=== PATIENT | male | born 1945 | race Caucasian/White ===

== ENCOUNTER 2016-06-22 00:45 | Inpatient (IN) | payer MEDICARE, MEDICAID ==
[2016-06-22 01:15] VITALS: BP 137/70
[2016-06-22] MEDS ORDERED: Magnesium Hydroxide (MOM) 30 mL UDC PO PRN (01:15)
[2016-06-22] MEDS: Hydrocodone/APAP 5mg/325mg Tab PO PRN ×3 (06:05→18:33)
[2016-06-22] MEDS: Multivitamin Tab PO SCH (09:30)
--- NOTE | 2016-06-22 13:35 | Psychosocial Evaluation ---
IDENTIFYING INFORMATION: The patient is a 71-year-old male. CHIEF COMPLAINT: "I have been in lot of pain." HISTORY OF PRESENT ILLNESS: The patient admitted on a hold for danger to self. He wanted to shoot himself with a gun. When I talked to him, he said he has been in lot of pain and he cannot handle it any more. Apparently, they had been not giving his medication. He was on morphine and oxycodone and they are cutting down his medication that is making him feel very overwhelmed. He is not able to sleep, not able to eat. He has lost 20 pounds in the last 2 years. He reports he felt suicidal, but now he does not feel suicidal. Denies any homicidal ideation, denies any auditory or visual hallucination or paranoia. He looked very much disheveled, internally preoccupied, when I talked to him. PAST PSYCHIATRIC HISTORY: The patient reports he has a history of using heroin IV, thus how he developed hepatitis C. He also used cannabis and also he reports using LSD. Overdose on LSD, took 3 tablets, was hospitalized once. He denies that it was a suicide attempt. He denies any prior treatment for depression; however, I am not sure if he is a reliable historian. MEDICAL HISTORY: Defer to the medical doctor. ALLERGIES: KLONOPIN, PENICILLIN, LYRICA, SOMA, ALPRAZOLAM. MEDICATIONS: The patient is currently on hydrocodone for pain and multivitamin and Ambien as needed. FAMILY AND SOCIAL HISTORY: The patient reported he has been twice, last marriage for 28 years. 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 Has 11th grade education, has a history of using drugs IVs. Initially heroin, have not used it in 40 years. He reports no current psychiatric disorder. is 62 years of age. She is a housewife. He reports he has okay relation with his . He lives with her. He denies having any legal problem. MENTAL STATUS EXAMINATION: The patient is appropriately dressed, not very well groomed, looked very much disheveled, disorganized, internally preoccupied with pain and not sleeping well, not eating well. He knew he was unable to tell me the exact date. He believes this is 2016, but he is not sure if it is June or July. He was able to tell me his date of being 1945. He knows where he is, but he is not exactly sure why he is here. He seems to have average intelligence. He knows the current president of [employer]. His concentration is poor. His insight and judgment is impaired. IMPRESSION: AXIS I: Major depression, recurrent cerebrovascular accident, possible psychosis and also history of polysubstance dependence. MEDICAL DIAGNOSES: Asthma, coronary artery disease, hepatitis C, arthritis, hiatal hernia, gastroesophageal reflux disease. His asset, he is accepting treatment. Negative poor coping skills. INITIAL TREATMENT PLAN: The patient will be started on Remeron. We will do group therapy, milieu therapy, individual therapy. ESTIMATED LENGTH OF STAY: 3-7 days. DISCHARGE CRITERIA: Decreasing depression, no longer suicidal. After discharge, outpatient treatment. JOB# [id number]
[2016-06-22] MEDS ORDERED: Albuterol Nebulizer 2.5mg/3mL HHN PRN (16:54)
--- NOTE | 2016-06-22 17:50 | History & Physical ---
PATIENT IDENTIFICATION: A 71-year-old male. CHIEF COMPLAINT: "I have been in lot of pain." HISTORY OF PRESENT ILLNESS: A 71-year-old male admitted by Dr. Barboza with legal status of involuntary after the patient was noted to have lot of pain associated with feeling of unable to sleep, unable to eat and having suicidal thoughts. The patient was initially evaluated at [facility] Emergency Room and subsequently now admitted to Geropsych Unit at the [facility]. PAST MEDICAL HISTORY: Remarkable for history of hepatitis C and DJD, history of polysubstance abuse, bronchial asthma, coronary artery disease, hiatal hernia, GERD, hiatal hernia. MEDICATIONS AT HOME: He was taking [place]. ALLERGIES: THE PATIENT IS ALLERGIC TO KLONOPIN, PENICILLIN, LYRICA, SOMA AND XANAX. 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 The patient has a history of smoking cigarette, drinking alcohol and using street drug use. FAMILY MEDICAL HISTORY: Remarkable for hypertension. REVIEW OF SYSTEMS: The patient's currently main concern is with the pain. Otherwise, denies any headache, blurred vision, double vision, dysphagia, odynophagia, runny nose, stuffy nose, fever, chills, cough, chest pain, shortness of breath, palpitation, dizziness, nausea, vomiting, diarrhea, dysuria, hematuria, hematochezia, melena. No seizure or syncopal episode. PHYSICAL EXAMINATION: GENERAL: The patient is alert, awake, lying in the bed without any acute distress. VITAL SIGNS: Temperature 98.6, pulse 74, respiratory rate 18, blood pressure reported 137/70. SKIN: Warm to touch. HEENT: Normocephalic, atraumatic. Extraocular muscles are intact. Tongue was pink and coated. Poor dentition noted. NECK: Supple, no JVD, no hepatojugular reflux. No lymphadenopathy, thyromegaly or carotid bruit. HEART: Both heart sounds are regular. No S3, no S4, no murmur. CHEST: Lung equal in expansion, no wheezing, no crackles. ABDOMEN: Soft. No guarding, no rigidity. Liver and spleen palpable. No palpable mass. EXTREMITIES: No edema, no cyanosis or clubbing. Pedal pulses +2, no calf tenderness noted. Diffuse osteoarthritic changes noted. AVAILABLE DIAGNOSTIC DATA: Has been reviewed performed at [facility]. CLINICAL IMPRESSION: 1. Coronary artery disease. 2. Bronchial asthma. 3. Degenerative joint disease. 4. Gastroesophageal reflux disease. 5. Hiatal hernia. 6. Polysubstance abuse. 7. Psychotic disorder. 8. Debility. PLAN: The patient has a chronic pain syndrome. The patient has been having a history of previous drug use. The patient is asking for pain medications. I am afraid of getting withdrawal. I will put her back on [place] lower dose every 6 hours and see how it works. The patient will be placed on Protonix along with aspirin and p.r.n. inhaler will be given as well. We will get the followup lab and we will continue to follow this patient during the stay at the hospital. I sincerely thank you, Dr. Barboza, for giving me the opportunity to participate in patient's of yours. JOB# [id number]
[2016-06-23] MEDS: Hydrocodone/APAP 5mg/325mg Tab PO PRN ×3 (00:37→17:22)
[2016-06-23] MEDS: Pantoprazole 40 mg/Packet PO SCH (09:42)
[2016-06-23] MEDS: Multivitamin Tab PO SCH (09:42)
[2016-06-23] MEDS: Aspirin 81mg Chewable Tab PO SCH (09:42)
--- NOTE | 2016-06-23 11:37 | General Progress Note ---
Subjective - Review of Systems Subjective: PATIENT IS SEEN AND EXAMINED. REMAIN AFEBRILE. PAIN IS MAIN ISSUE. Objective - Physical Exam Vitals and I&O: Vital Signs Temp 98.0 F 06/22/16 14:00 Pulse 65 06/22/16 20:00 Resp 21 06/22/16 20:00 BP 140/70 06/22/16 14:00 Pulse Ox 96 06/22/16 19:39 Intake & Output 06/22/16 06/23/16 06/23/16 18:59 06:59 18:59 Intake Total 1200 Balance 1200 Intake: Oral 1200 Other: # Voids 3 # Bowel Movements 1 Active Medications: Current Medications Acetaminophen (Tylenol) 650 mg PO Q4HR PRN PRN Reason: Pain Stop: 08/21/16 01:14 Acetaminophen/Hydrocodone Bitart ([place] 5mg/325mg) 1 tab PO Q6H PRN PRN Reason: Severe Pain Stop: 08/21/16 01:31 Last Admin: 06/23/16 07:35 Dose: 1 tab Al Hydrox/Mg Hydrox/Simethicone (Maalox) 30 ml PO Q4HR PRN PRN Reason: GI DISTRESS Stop: 08/21/16 01:14 Albuterol Sulfate (Albuterol 2.5mg/3ml Neb Ud) 2.5 mg HHN Q6H PRN PRN Reason: Shortness of Breath Stop: 08/21/16 16:53 Aspirin (Aspirin Chewable) 81 mg PO DAILY DANUTA Stop: 08/22/16 08:59 Last Admin: 06/23/16 09:42 Dose: 81 mg Hydroxyzine Pamoate (Vistaril) 25 mg PO Q4HR PRN; Protocol PRN Reason: Anxiety Stop: 08/22/16 11:17 Hydroxyzine Pamoate (Vistaril) 25 mg PO Q6HR PRN; Protocol PRN Reason: Agitation Stop: 08/22/16 11:17 Mirtazapine (Remeron) 15 mg PO HS DANUTA PRN Reason: Protocol Stop: 08/22/16 11:19 Multivitamins/Vitamin C (Theragran) 1 tab PO DAILY DANUTA Stop: 08/21/16 08:59 Last Admin: 06/23/16 09:42 Dose: 1 tab Pantoprazole Sodium (Protonix) 40 mg PO DAILY DANUTA Stop: 08/22/16 08:59 Last Admin: 06/23/16 09:42 Dose: 40 mg Zolpidem Tartrate (Ambien) 5 mg PO HS PRN PRN Reason: Insomnia Stop: 08/21/16 01:14 Last Admin: 06/22/16 21:05 Dose: 5 mg General: Alert, Cooperative, No acute distress HEENT: Atraumatic, PERRLA, EOMI Neck: Supple, JVD Cardiovascular: Regular rate, Normal S1, Normal S2 Lungs: Clear to auscultation Abdomen: Bowel sounds, Soft Neurological: Normal gait, Normal tone Assessment/Plan - Assessment Assessment: ASTHMA AND COPD. CAD GERD HEP C CHRONIC PAIN SYNDROME PSYCH DISORDER DIFFUSE DJD DEBILITY GASTRITIS. - Plan Plan: PAIN CONTROL ASA PROTONIX PRN INHALATION THERPAY GENERAL NURSING CARE PSYCH MEDS PSYCH FOLLOW UP. MONITOR VITALS AND LAB CONTINUE CURRENT CARE DISCUSSED WITH CURRY
[2016-06-23 15:38] LABS: % BASOPHILS 0.8 % (0.0-2.0); % EOSINOPHILS 1.4 % (0.0-5.0); % MONOCYTES 13.1 % (2.0-10.0); % NEUTROPHILS 67.7 % (40.0-80.0); HEMOGLOBIN 15.8 gm/dL (12.6-17.4); MEAN CELL VOLUME 94.4 fl (80-99); MEAN CORPUSCULAR HEMOGLOBIN 31.1 pg (27.0-31.0); MEAN PLATELET VOLUME 9.2 fl; NEUTROPHILE ABSOLUTE 5.8 Th/cmm (1.8-8.0); PLATELET COUNT 251 Th/cmm (150-400); RED BLOOD COUNT 5.08 Mil/cmm (3.80-5.80); RED CELL DISTRIBUTION WIDTH 14.9 % (11.5-20.0); WHITE BLOOD COUNT 8.5 Th/cmm (4.8-10.8)
[2016-06-23 16:38] LABS: ALKALINE PHOSPHATASE 90 U/L (34-104); ANION GAP 14.5 (7.0-16.0); BILIRUBIN,TOTAL 0.3 mg/dL (0.3-1.0); BUN - UREA NITROGEN 33 mg/dL (7-25); BUN/CREATININE RATIO 25.4; CALCIUM SERUM 9.5 mg/dL (8.6-10.3); CARBON DIOXIDE 20.2 mEq/L (21.0-31.0); CHLORIDE 107 mEq/L (98-107); CREATININE - SERUM 1.3 mg/dL (0.7-1.3); GLUCOSE 105 mg/dL (70-105); POTASSIUM SERUM 3.7 mEq/L (3.5-5.1); SGOT 21 U/L (13-39); SGPT/ALT 18 U/L (7-52); SODIUM SERUM 138 mEq/L (136-145)
[2016-06-23] MEDS: Maalox 30 mL Cup PO PRN (21:32)
[2016-06-24] MEDS: Hydrocodone/APAP 5mg/325mg Tab PO PRN ×3 (01:49→21:34)
--- NOTE | 2016-06-24 02:04 | Progress Notes ---
Case was discussed with staff of the patient, reviewed records. The patient reported that he was taking morphine. The doctor 240 tablets a month and also [place]. The patient so far has been given hydrocodone by the doctor here for his pain. The patient is complaining of a lot of anxiety. He is allergic to ALPRAZOLAM and KLONOPIN. He is minimizing working on placement for this patient. He denies that he was planning to harm himself or anybody. I talked to the director case management about placement for this patient, and we are working on it to see if he is safe to go home or not, and he is making collateral and trying to get information from people who knows him and so far he tolerated the Remeron with no side effects. I will be increasing the Remeron dose to help with his anxiety. We will continue to work with the patient in group therapy, milieu therapy, and adjust the medication as needed. JOB# [id number]
[2016-06-24] MEDS: Aspirin 81mg Chewable Tab PO SCH (08:19)
[2016-06-24] MEDS: Pantoprazole 40 mg/Packet PO SCH (08:19)
[2016-06-24] MEDS: Multivitamin Tab PO SCH (08:19)
--- NOTE | 2016-06-24 09:07 | General Progress Note ---
Subjective - Review of Systems Subjective: PATIENT IS SEEN AND EXAMINED. REMAIN AFEBRILE. BLOOD PRESURRE IS HIGH. Objective - Results Result Diagrams: 06/23/16 15:20 06/23/16 15:20 Recent Labs: Laboratory Last Values WBC 8.5 Th/cmm (4.8-10.8) 06/23/16 15:20 RBC 5.08 Mil/cmm (3.80-5.80) 06/23/16 15:20 Hgb 15.8 gm/dL (12.6-17.4) 06/23/16 15:20 Hct 48.0 % (39.0-49.0) 06/23/16 15:20 MCV 94.4 fl (80-99) 06/23/16 15:20 MCH 31.1 pg (27.0-31.0) H 06/23/16 15:20 MCHC Differential 33.0 pg (28.0-36.0) 06/23/16 15:20 RDW 14.9 % (11.5-20.0) 06/23/16 15:20 Plt Count 251 Th/cmm (150-400) 06/23/16 15:20 MPV 9.2 fl 06/23/16 15:20 Neutrophils % 67.7 % (40.0-80.0) 06/23/16 15:20 Lymphocytes % 17.0 % (20.0-50.0) L 06/23/16 15:20 Monocytes % 13.1 % (2.0-10.0) H 06/23/16 15:20 Eosinophils % 1.4 % (0.0-5.0) 06/23/16 15:20 Basophils % 0.8 % (0.0-2.0) 06/23/16 15:20 Sodium 138 mEq/L (136-145) 06/23/16 15:20 Potassium 3.7 mEq/L (3.5-5.1) 06/23/16 15:20 Chloride 107 mEq/L (98-107) 06/23/16 15:20 Carbon Dioxide 20.2 mEq/L (21.0-31.0) L 06/23/16 15:20 Anion Gap 14.5 (7.0-16.0) 06/23/16 15:20 BUN 33 mg/dL (7-25) H 06/23/16 15:20 Creatinine 1.3 mg/dL (0.7-1.3) 06/23/16 15:20 Est GFR ( Amer) TNP 06/23/16 15:20 Est GFR (Non-Af Amer) TNP 06/23/16 15:20 BUN/Creatinine Ratio 25.4 06/23/16 15:20 Glucose 105 mg/dL (70-105) 06/23/16 15:20 Calcium 9.5 mg/dL (8.6-10.3) 06/23/16 15:20 Total Bilirubin 0.3 mg/dL (0.3-1.0) 06/23/16 15:20 AST 21 U/L (13-39) 06/23/16 15:20 ALT 18 U/L (7-52) 06/23/16 15:20 Alkaline Phosphatase 90 U/L (34-104) 06/23/16 15:20 Total Protein 8.3 gm/dL (6.0-8.3) 06/23/16 15:20 Albumin 4.2 gm/dL (4.2-5.5) 06/23/16 15:20 Globulin 4.1 gm/dL 06/23/16 15:20 Albumin/Globulin Ratio 1.0 (1.0-1.8) 06/23/16 15:20 - Physical Exam Vitals and I&O: Vital Signs Temp 97.4 F 06/24/16 07:07 Pulse 78 06/24/16 08:18 Resp 18 06/24/16 07:07 BP 176/107 06/24/16 08:18 Pulse Ox 97 06/24/16 07:07 Intake & Output 06/23/16 06/24/16 06/24/16 18:59 06:59 18:59 Intake Total 1200 Balance 1200 Intake: Oral 1200 Other: # Voids 4 2 # Bowel Movements 1 Active Medications: Current Medications Acetaminophen (Tylenol) 650 mg PO Q4HR PRN PRN Reason: Pain Stop: 08/21/16 01:14 Acetaminophen/Hydrocodone Bitart ([place] 5mg/325mg) 1 tab PO Q6H PRN PRN Reason: Severe Pain Stop: 08/21/16 01:31 Last Admin: 06/24/16 08:19 Dose: 1 tab Al Hydrox/Mg Hydrox/Simethicone (Maalox) 30 ml PO Q4HR PRN PRN Reason: GI DISTRESS Stop: 08/21/16 01:14 Last Admin: 06/23/16 21:32 Dose: 30 ml Albuterol Sulfate (Albuterol 2.5mg/3ml Neb Ud) 2.5 mg HHN Q6H PRN PRN Reason: Shortness of Breath Stop: 08/21/16 16:53 Aspirin (Aspirin Chewable) 81 mg PO DAILY DANUTA Stop: 08/22/16 08:59 Last Admin: 06/24/16 08:19 Dose: 81 mg Captopril (Capoten 25 Mg Tab) 25 mg PO TID DANUTA Stop: 08/22/16 13:59 Last Admin: 06/24/16 08:18 Dose: 25 mg Hydroxyzine Pamoate (Vistaril) 25 mg PO Q6HR PRN; Protocol PRN Reason: Agitation Stop: 08/22/16 11:17 Last Admin: 06/23/16 23:21 Dose: 25 mg Mirtazapine (Remeron) 15 mg PO HS DANUTA PRN Reason: Protocol Stop: 08/22/16 11:19 Last Admin: 06/23/16 20:23 Dose: 15 mg Multivitamins/Vitamin C (Theragran) 1 tab PO DAILY DANUTA Stop: 08/21/16 08:59 Last Admin: 06/24/16 08:19 Dose: 1 tab Pantoprazole Sodium (Protonix) 40 mg PO DAILY DANUTA Stop: 08/22/16 08:59 Last Admin: 06/24/16 08:19 Dose: 40 mg Zolpidem Tartrate (Ambien) 5 mg PO HS PRN PRN Reason: Insomnia Stop: 08/21/16 01:14 Last Admin: 06/23/16 20:24 Dose: 5 mg General: Alert, Oriented x3, Cooperative HEENT: Atraumatic, PERRLA, EOMI Neck: Supple, JVD Cardiovascular: Regular rate, Normal S1, Normal S2 Abdomen: Bowel sounds, Soft Neurological: Normal gait Assessment/Plan - Assessment Assessment: ASTHMA AND COPD. CAD GERD HYPERTENSION. HEP C CHRONIC PAIN SYNDROME PSYCH DISORDER DIFFUSE DJD DEBILITY GASTRITIS. - Plan Plan: PAIN CONTROL ASA PROTONIX ADD NORVASC AND CAPOTEN. PRN INHALATION THERPAY GENERAL NURSING CARE PSYCH MEDS PSYCH FOLLOW UP. MONITOR VITALS AND LAB CONTINUE CURRENT CARE DISCUSSED WITH CURRY
[2016-06-24] MEDS: Maalox 30 mL Cup PO PRN (20:16)
--- NOTE | 2016-06-25 03:55 | Progress Notes ---
Case was discussed with staff of the patient, reviewed records. The patient has been medication seeking. Continues to look disheveled, disorganized, internally preoccupied. Continues to have poor insight. Continues to be unable to make safe plan for his self-care with his behavior. He is trying to minimize everything, he wants to leave today; however, he has been acting very erratic, demanding medication, want his medications, he was given all at the same time, he was using ____ with history of using heroin ____ he is still unsafe to go. He is unpredictable, impulsive. I did have him on Remeron 50 mg at bedtime and so far, no side effects, no sedation, no nausea, no extrapyramidal symptoms, and we will continue to work with the patient in group therapy, milieu therapy, adjust medication ____ for discharge because of his behavior. JOB# [id number]
[2016-06-25 07:08] LABS: % EOSINOPHILS 5.3 % (0.0-5.0); % LYMPHOCYTES 27.6 % (20.0-50.0); % MONOCYTES 12.7 % (2.0-10.0); % NEUTROPHILS 53.4 % (40.0-80.0); HEMATOCRIT 45.4 % (39.0-49.0); HEMOGLOBIN 15.3 gm/dL (12.6-17.4); MEAN CELL VOLUME 94.4 fl (80-99); MEAN CORPUSCULAR HEMOGLOBIN 31.8 pg (27.0-31.0); MEAN CORPUSCULAR HGB CONC 33.6 pg (28.0-36.0); MEAN PLATELET VOLUME 9.3 fl; NEUTROPHILE ABSOLUTE 5.5 Th/cmm (1.8-8.0); PLATELET COUNT 243 Th/cmm (150-400); RED BLOOD COUNT 4.81 Mil/cmm (3.80-5.80); RED CELL DISTRIBUTION WIDTH 14.8 % (11.5-20.0)
[2016-06-25 07:18] LABS: WHITE BLOOD COUNT 10.4 Th/cmm (4.8-10.8)
[2016-06-25 07:24] LABS: ALKALINE PHOSPHATASE 92 U/L (34-104); ANION GAP 11.9 (7.0-16.0); BILIRUBIN,TOTAL 0.5 mg/dL (0.3-1.0); BUN - UREA NITROGEN 31 mg/dL (7-25); CALCIUM SERUM 9.7 mg/dL (8.6-10.3); CARBON DIOXIDE 23.5 mEq/L (21.0-31.0); CHLORIDE 109 mEq/L (98-107); GLUCOSE 100 mg/dL (70-105); POTASSIUM SERUM 3.4 mEq/L (3.5-5.1); SGOT 40 U/L (13-39); SGPT/ALT 65 U/L (7-52); SODIUM SERUM 141 mEq/L (136-145)
[2016-06-25] MEDS: Multivitamin Tab PO SCH (08:31)
[2016-06-25] MEDS: Aspirin 81mg Chewable Tab PO SCH (08:31)
[2016-06-25] MEDS: Pantoprazole 40 mg/Packet PO SCH (08:31)
[2016-06-25] MEDS: Hydrocodone/APAP 5mg/325mg Tab PO PRN ×2 (08:32→16:51)
--- NOTE | 2016-06-25 10:41 | General Progress Note ---
Subjective - Review of Systems Subjective: PATIENT IS SEEN AND EXAMINED. REMAIN AFEBRILE. ASKING FOR MORE PAIN MEDS. DISCUSSED WITH RN:RE HER CONCERNS. Objective - Results Result Diagrams: 06/25/16 06:43 06/25/16 06:43 Recent Labs: Laboratory Last Values WBC 10.4 Th/cmm (4.8-10.8) D 06/25/16 06:43 RBC 4.81 Mil/cmm (3.80-5.80) 06/25/16 06:43 Hgb 15.3 gm/dL (12.6-17.4) 06/25/16 06:43 Hct 45.4 % (39.0-49.0) 06/25/16 06:43 MCV 94.4 fl (80-99) 06/25/16 06:43 MCH 31.8 pg (27.0-31.0) H 06/25/16 06:43 MCHC Differential 33.6 pg (28.0-36.0) 06/25/16 06:43 RDW 14.8 % (11.5-20.0) 06/25/16 06:43 Plt Count 243 Th/cmm (150-400) 06/25/16 06:43 MPV 9.3 fl 06/25/16 06:43 Neutrophils % 53.4 % (40.0-80.0) 06/25/16 06:43 Lymphocytes % 27.6 % (20.0-50.0) 06/25/16 06:43 Monocytes % 12.7 % (2.0-10.0) H 06/25/16 06:43 Eosinophils % 5.3 % (0.0-5.0) H 06/25/16 06:43 Basophils % 1.0 % (0.0-2.0) 06/25/16 06:43 Sodium 141 mEq/L (136-145) 06/25/16 06:43 Potassium 3.4 mEq/L (3.5-5.1) L 06/25/16 06:43 Chloride 109 mEq/L (98-107) H 06/25/16 06:43 Carbon Dioxide 23.5 mEq/L (21.0-31.0) 06/25/16 06:43 Anion Gap 11.9 (7.0-16.0) 06/25/16 06:43 BUN 31 mg/dL (7-25) H 06/25/16 06:43 Creatinine 1.0 mg/dL (0.7-1.3) 06/25/16 06:43 Est GFR ( Amer) TNP 06/25/16 06:43 Est GFR (Non-Af Amer) TNP 06/25/16 06:43 BUN/Creatinine Ratio 31.0 06/25/16 06:43 Glucose 100 mg/dL (70-105) 06/25/16 06:43 Calcium 9.7 mg/dL (8.6-10.3) 06/25/16 06:43 Total Bilirubin 0.5 mg/dL (0.3-1.0) 06/25/16 06:43 AST 40 U/L (13-39) H 06/25/16 06:43 ALT 65 U/L (7-52) H 06/25/16 06:43 Alkaline Phosphatase 92 U/L (34-104) 06/25/16 06:43 Total Protein 7.7 gm/dL (6.0-8.3) 06/25/16 06:43 Albumin 3.9 gm/dL (4.2-5.5) L 06/25/16 06:43 Globulin 3.8 gm/dL 06/25/16 06:43 Albumin/Globulin Ratio 1.0 (1.0-1.8) 06/25/16 06:43 - Physical Exam Vitals and I&O: Vital Signs Temp 97.8 F 06/25/16 06:49 Pulse 80 06/25/16 08:32 Resp 18 06/25/16 07:32 BP 154/100 06/25/16 08:32 Pulse Ox 97 06/25/16 07:31 Intake & Output 06/24/16 06/25/16 06/25/16 18:59 06:59 18:59 Intake Total 1000 Balance 1000 Intake: Oral 1000 Other: # Voids 3 1 # Bowel Movements 1 Active Medications: Current Medications Acetaminophen (Tylenol) 650 mg PO Q4HR PRN PRN Reason: Pain Stop: 08/21/16 01:14 Acetaminophen/Hydrocodone Bitart ([place] 5mg/325mg) 1 tab PO Q6H PRN PRN Reason: Severe Pain Stop: 08/21/16 01:31 Last Admin: 06/25/16 08:32 Dose: 1 tab Al Hydrox/Mg Hydrox/Simethicone (Maalox) 30 ml PO Q4HR PRN PRN Reason: GI DISTRESS Stop: 08/21/16 01:14 Last Admin: 06/24/16 20:16 Dose: 30 ml Albuterol Sulfate (Albuterol 2.5mg/3ml Neb Ud) 2.5 mg HHN Q6H PRN PRN Reason: Shortness of Breath Stop: 08/21/16 16:53 Amlodipine Besylate (Norvasc) 10 mg PO DAILY DANUTA Stop: 08/23/16 09:59 Last Admin: 06/25/16 08:32 Dose: 10 mg Aspirin (Aspirin Chewable) 81 mg PO DAILY DANUTA Stop: 08/22/16 08:59 Last Admin: 06/25/16 08:31 Dose: 81 mg Captopril (Capoten 25 Mg Tab) 25 mg PO TID DANUTA Stop: 08/22/16 13:59 Last Admin: 06/25/16 08:31 Dose: 25 mg Hydroxyzine Pamoate (Vistaril) 25 mg PO Q6HR PRN; Protocol PRN Reason: Agitation Stop: 08/22/16 11:17 Last Admin: 06/23/16 23:21 Dose: 25 mg Mirtazapine (Remeron) 15 mg PO HS DANUTA PRN Reason: Protocol Stop: 08/22/16 11:19 Last Admin: 06/24/16 20:17 Dose: 15 mg Multivitamins/Vitamin C (Theragran) 1 tab PO DAILY DANUTA Stop: 08/21/16 08:59 Last Admin: 06/25/16 08:31 Dose: 1 tab Pantoprazole Sodium (Protonix) 40 mg PO DAILY DANUTA Stop: 08/22/16 08:59 Last Admin: 06/25/16 08:31 Dose: 40 mg Zolpidem Tartrate (Ambien) 5 mg PO HS PRN PRN Reason: Insomnia Stop: 08/21/16 01:14 Last Admin: 06/25/16 00:38 Dose: 5 mg General: Alert, Cooperative, No acute distress HEENT: Atraumatic, PERRLA, EOMI Neck: Supple Cardiovascular: Regular rate, Normal S1, Normal S2 Lungs: Clear to auscultation Abdomen: Soft Extremities: Other (no edema+) Neurological: Normal gait Assessment/Plan - Assessment Assessment: ASTHMA AND COPD. CAD GERD HYPERTENSION. HEP C CHRONIC PAIN SYNDROME PSYCH DISORDER DIFFUSE DJD DEBILITY GASTRITIS. - Plan Plan: PAIN CONTROL ASA PROTONIX ADJUST BP MEDS. PRN INHALATION THERAPY GENERAL NURSING CARE PSYCH MEDS PSYCH FOLLOW UP. MONITOR VITALS AND LAB CONTINUE CURRENT CARE DISCUSSED WITH CURRY
[2016-06-26] MEDS: Hydrocodone/APAP 5mg/325mg Tab PO PRN ×4 (00:10→21:03)
--- NOTE | 2016-06-26 07:40 | Progress Notes ---
Covering for Dr. Barboza. SUBJECTIVE: Overnight the nursing staff is reporting that at times, the patient has been very irritable and reporting that the pain itself is now well controlled, although he is observed to walking on his own. On [id number] evaluation, the patient reports no side effects of the medications reporting he has been sleeping well overnight, also reporting that he has been minimizing ____ and about wanting to be discharged, but also very demanded on his medications that has to be given at the same time and also with the ____ heroin use, he is still unable to elaborate on the dual diagnosis of polysubstance use. Today on [id number], he is also observed to irritable and easily agitated. MENTAL STATUS EXAMINATION: Irritable and agitated with poor insight, judgment and impulse control. ASSESSMENT AND PLAN: The patient is a 71-year-old male who continues to be unpredictable, minimizing, and guarded in regard to his behavior. We will continue with primary psychiatric treatment plan and goals overnight which include Remeron 15 mg a day to target the patient's insomnia and severe depression. JOB# [id number]
[2016-06-26] MEDS: Multivitamin Tab PO SCH (09:41)
[2016-06-26] MEDS: Aspirin 81mg Chewable Tab PO SCH (09:41)
[2016-06-26] MEDS: Pantoprazole 40 mg/Packet PO SCH (09:42)
[2016-06-27] MEDS: Hydrocodone/APAP 5mg/325mg Tab PO PRN ×3 (03:05→20:15)
--- NOTE | 2016-06-27 03:09 | Progress Notes ---
SUBJECTIVE: The patient is seen. Chart reviewed. Discussed with staff. The patient is currently in the hospital, unpredictable med seeking. The patient made statements that he wanted to "blow my head off," suicidal, states he is here because "I was hurting really bad." States that when he leaves here, he will go back home with his . However, he does remain still depressed, withdrawn, minimizing, irritable. States he is sleeping okay, eating okay, also with history of heroin and opiate abuse. ASSESSMENT: The patient depressed, symptomatic, made suicidal statements upon admission, still irritable, withdrawn. PLAN: Continue to monitor. Continue to titrate medications given the severity of the patient's symptoms, and his withdrawal and his depressed demeanor though are still safety concerns. [facility]# [id number]
--- NOTE | 2016-06-27 08:27 | General Progress Note ---
Subjective - Review of Systems Subjective: PATIENT IS SEEN AND EXAMINED. AMBULATING IN HALLWAY. NO NEW COMPLAINTS. DISCUSSED WITH STAFF RE; OVER NIGHT EVENTS AND THEIR CONCERNS. Objective - Results Result Diagrams: 06/25/16 06:43 06/25/16 06:43 Recent Labs: Laboratory Last Values WBC 10.4 Th/cmm (4.8-10.8) D 06/25/16 06:43 RBC 4.81 Mil/cmm (3.80-5.80) 06/25/16 06:43 Hgb 15.3 gm/dL (12.6-17.4) 06/25/16 06:43 Hct 45.4 % (39.0-49.0) 06/25/16 06:43 MCV 94.4 fl (80-99) 06/25/16 06:43 MCH 31.8 pg (27.0-31.0) H 06/25/16 06:43 MCHC Differential 33.6 pg (28.0-36.0) 06/25/16 06:43 RDW 14.8 % (11.5-20.0) 06/25/16 06:43 Plt Count 243 Th/cmm (150-400) 06/25/16 06:43 MPV 9.3 fl 06/25/16 06:43 Neutrophils % 53.4 % (40.0-80.0) 06/25/16 06:43 Lymphocytes % 27.6 % (20.0-50.0) 06/25/16 06:43 Monocytes % 12.7 % (2.0-10.0) H 06/25/16 06:43 Eosinophils % 5.3 % (0.0-5.0) H 06/25/16 06:43 Basophils % 1.0 % (0.0-2.0) 06/25/16 06:43 Sodium 141 mEq/L (136-145) 06/25/16 06:43 Potassium 3.4 mEq/L (3.5-5.1) L 06/25/16 06:43 Chloride 109 mEq/L (98-107) H 06/25/16 06:43 Carbon Dioxide 23.5 mEq/L (21.0-31.0) 06/25/16 06:43 Anion Gap 11.9 (7.0-16.0) 06/25/16 06:43 BUN 31 mg/dL (7-25) H 06/25/16 06:43 Creatinine 1.0 mg/dL (0.7-1.3) 06/25/16 06:43 Est GFR ( Amer) TNP 06/25/16 06:43 Est GFR (Non-Af Amer) TNP 06/25/16 06:43 BUN/Creatinine Ratio 31.0 06/25/16 06:43 Glucose 100 mg/dL (70-105) 06/25/16 06:43 POC Glucose 181 MG/DL (70 - 105) H 06/26/16 20:10 Calcium 9.7 mg/dL (8.6-10.3) 06/25/16 06:43 Total Bilirubin 0.5 mg/dL (0.3-1.0) 06/25/16 06:43 AST 40 U/L (13-39) H 06/25/16 06:43 ALT 65 U/L (7-52) H 06/25/16 06:43 Alkaline Phosphatase 92 U/L (34-104) 06/25/16 06:43 Total Protein 7.7 gm/dL (6.0-8.3) 06/25/16 06:43 Albumin 3.9 gm/dL (4.2-5.5) L 06/25/16 06:43 Globulin 3.8 gm/dL 06/25/16 06:43 Albumin/Globulin Ratio 1.0 (1.0-1.8) 06/25/16 06:43 - Physical Exam Vitals and I&O: Vital Signs Temp 98.3 F 06/27/16 06:10 Pulse 63 06/27/16 06:10 Resp 20 06/27/16 06:10 BP 149/88 06/27/16 06:10 Pulse Ox 97 06/27/16 06:10 Intake & Output 06/26/16 06/27/16 06/27/16 18:59 06:59 18:59 Intake Total 240 Balance 240 Intake: Oral 240 Other: # Voids 1 # Bowel Movements 1 Active Medications: Current Medications Acetaminophen (Tylenol) 650 mg PO Q4HR PRN PRN Reason: Pain Stop: 08/21/16 01:14 Last Admin: 06/26/16 09:41 Dose: 650 mg Acetaminophen/Hydrocodone Bitart ([place] 5mg/325mg) 1 tab PO Q6H PRN PRN Reason: Severe Pain Stop: 08/21/16 01:31 Last Admin: 06/27/16 03:05 Dose: 1 tab Al Hydrox/Mg Hydrox/Simethicone (Maalox) 30 ml PO Q4HR PRN PRN Reason: GI DISTRESS Stop: 08/21/16 01:14 Last Admin: 06/24/16 20:16 Dose: 30 ml Albuterol Sulfate (Albuterol 2.5mg/3ml Neb Ud) 2.5 mg HHN Q6H PRN PRN Reason: Shortness of Breath Stop: 08/21/16 16:53 Amlodipine Besylate (Norvasc) 10 mg PO DAILY [facility] Stop: 08/23/16 09:59 Last Admin: 06/26/16 09:48 Dose: 10 mg Aspirin (Aspirin Chewable) 81 mg PO DAILY [facility]AN[facility] Stop: 08/22/16 08:59 Last Admin: 06/26/16 09:41 Dose: 81 mg Captopril (Capoten 25 Mg Tab) 50 mg PO TID DANUTA Stop: 08/24/16 13:59 Last Admin: 06/26/16 20:53 Dose: 50 mg Hydroxyzine Pamoate (Vistaril) 25 mg PO Q6HR PRN; Protocol PRN Reason: Agitation Stop: 08/22/16 11:17 Last Admin: 06/23/16 23:21 Dose: 25 mg Mirtazapine (Remeron) 15 mg PO HS DANUTA PRN Reason: Protocol Stop: 08/22/16 11:19 Last Admin: 06/26/16 20:55 Dose: 15 mg Multivitamins/Vitamin C (Theragran) 1 tab PO DAILY [facility]AN[facility] Stop: 08/21/16 08:59 Last Admin: 06/26/16 09:41 Dose: 1 tab Pantoprazole Sodium (Protonix) 40 mg PO DAILY [facility] Stop: 08/22/16 08:59 Last Admin: 06/26/16 09:42 Dose: 40 mg Zolpidem Tartrate (Ambien) 5 mg PO HS PRN PRN Reason: Insomnia Stop: 08/21/16 01:14 Last Admin: 06/26/16 22:25 Dose: 5 mg General: Alert, Oriented x3, Cooperative HEENT: PERRLA, EOMI Neck: Supple, +2 carotid pulse wo bruit Cardiovascular: Regular rate, Normal S1, Normal S2 Lungs: Clear to auscultation, Normal air movement Abdomen: Bowel sounds, Soft Extremities: Other (no edema,cyanosis.) Neurological: Normal gait Assessment/Plan - Assessment Assessment: ASTHMA AND COPD. CAD GERD HYPERTENSION. HEP C CHRONIC PAIN SYNDROME PSYCH DISORDER DIFFUSE DJD DEBILITY GASTRITIS. - Plan Plan: PAIN CONTROL ASA PROTONIX FOR GERD. ANTI HTN MEDS. PRN INHALATION THERAPY GENERAL NURSING CARE PSYCH MEDS. FALL PRECAUTIONS. PSYCH FOLLOW UP. MONITOR VITALS AND LAB CONTINUE CURRENT CARE DISCUSSED WITH CURRY
[2016-06-27] MEDS: Pantoprazole 40 mg/Packet PO SCH (08:30)
[2016-06-27] MEDS: Aspirin 81mg Chewable Tab PO SCH (08:30)
[2016-06-27] MEDS: Multivitamin Tab PO SCH (08:30)
--- NOTE | 2016-06-27 22:48 | Progress Notes ---
Case was discussed with staff of the patient, reviewed records. The patient continues to be unpredictable, med seeking. He is minimizing events at his admission, we are trying to call his . He reports his is schizophrenic, he needs to be out to take care of her. He is compliant with the medication with no side effects, reported he is not going to use any more drugs; however, he is not a reliable historian. He is minimizing everything and so far, he is compliant with the medications with no side effects, no sedation, no nausea. His lab work showed CBC with high MCH and high monocyte. His chemistry panel showed high BUN, low CO2, the rest within normal range and we will continue to work with the patient in group therapy, milieu therapy, adjust medications as needed. JOB# [id number]
[2016-06-28] MEDS: Hydrocodone/APAP 5mg/325mg Tab PO PRN ×4 (03:37→23:23)
[2016-06-28] MEDS: Aspirin 81mg Chewable Tab PO SCH (08:24)
[2016-06-28] MEDS: Multivitamin Tab PO SCH (08:25)
[2016-06-28] MEDS: Pantoprazole 40 mg/Packet PO SCH (08:25)
--- NOTE | 2016-06-29 01:19 | Progress Notes ---
Case was discussed with staff of the patient, reviewed records. The patient has been minimizing his substance abuse issues, minimizing his attempt to harm himself. He, however, is better groomed. He is currently reporting no current intent to harm himself or anybody. He is sleeping better and eating better. Looking better groomed, so I talked to the staff if there could be any referral to an anti-substance abuse facility. He has been compliant with the Remeron with no side effects, no sedation, no nausea, and we will continue to work with the patient in group therapy, milieu therapy, and adjust the medication as needed. JOB# [id number]
[2016-06-29] MEDS: Hydrocodone/APAP 5mg/325mg Tab PO PRN ×3 (05:26→23:25)
[2016-06-29] MEDS: Multivitamin Tab PO SCH (08:43)
[2016-06-29] MEDS: Aspirin 81mg Chewable Tab PO SCH (08:44)
[2016-06-29] MEDS: Pantoprazole 40 mg/Packet PO SCH (08:44)
--- NOTE | 2016-06-30 03:21 | Progress Notes ---
Case discussed with the staff of the patient, reviewed records. The patient has been reported by the staff to be med-seeking. When I talked to the patient about drug use, he said that he minimizes, but he did admit that he smokes marijuana. He continues to have poor insight about the whole process, needing redirection. He is sleeping well, eating well. The ____ and the staff reports that he will be going with his and so far he is compliant with the medications with no side effects, no sedation, no nausea, no extrapyramidal symptoms. I did talk to the patient the need for him to go to go to a ____ program for his symptoms. I will continue to work with the patient in group therapy, milieu therapy, adjust medications as needed. JOB# [id number]
[2016-06-30] MEDS: Hydrocodone/APAP 5mg/325mg Tab PO PRN ×3 (06:49→23:12)
[2016-06-30] MEDS: Aspirin 81mg Chewable Tab PO SCH (09:09)
[2016-06-30] MEDS: Multivitamin Tab PO SCH (09:09)
[2016-06-30] MEDS: Pantoprazole 40 mg/Packet PO SCH (09:10)
[2016-06-30] MEDS: Maalox 30 mL Cup PO PRN (16:09)
--- NOTE | 2016-06-30 23:56 | Progress Notes ---
Case was discussed with staff of the patient, reviewed records. The patient is reported by the staff to be medication seeking, continues to have somewhat poor insight about his behavior, was refusing drugs, trying to harm himself. He continues to be unpredictable, impulsive, continues to need redirection. He is compliant with the medication with no side effects, no sedation, no nausea. He is on hydrocodone; however, he is not on any addictive medication. He is only on hydroxyzine for anxiety to make sure he does not get any addictive medication because of his behavior and he is still not ready to go because of his behavior. He needs to learn better coping skills and he is unpredictable and impulsive. We will continue to work with the patient in group therapy, milieu therapy, and adjust medication as needed. JOB# [id number]
[2016-07-01] MEDS: Hydrocodone/APAP 5mg/325mg Tab PO PRN ×3 (08:37→21:31)
[2016-07-01] MEDS: Aspirin 81mg Chewable Tab PO SCH (08:37)
[2016-07-01] MEDS: Multivitamin Tab PO SCH (08:37)
[2016-07-01] MEDS: Pantoprazole 40 mg/Packet PO SCH (08:37)
--- NOTE | 2016-07-01 23:28 | Progress Notes ---
SUBJECTIVE: The patient is seen, chart reviewed, discussed with staff, I am familiar with justification with the patient's admission, the patient was making suicidal statements, still minimizing, unpredictable, impulsive, still with safety concerns. He does state that he does have __somewhere__ to go to and that he is . He is worried about his . The patient is isolative, withdrawn as well. On a positive note, he has been following in the rules and directions, noted by staff to be med seeking, sleeping well, eating well. ASSESSMENT: The patient remains symptomatic, med seeking, depressed, withdrawn, still with safety concerns. PLAN: We will continue to monitor, encourage med compliance. JOB# [id number] LARRY
[2016-07-02] MEDS: Hydrocodone/APAP 5mg/325mg Tab PO PRN ×3 (04:07→19:34)
[2016-07-02] MEDS: Aspirin 81mg Chewable Tab PO SCH (08:13)
[2016-07-02] MEDS: Pantoprazole 40 mg/Packet PO SCH (08:13)
[2016-07-02] MEDS: Multivitamin Tab PO SCH (08:13)
[2016-07-02] MEDS: Maalox 30 mL Cup PO PRN (19:35)
[2016-07-03] MEDS: Hydrocodone/APAP 5mg/325mg Tab PO PRN ×4 (02:08→21:15)
--- NOTE | 2016-07-03 02:23 | Progress Notes ---
SUBJECTIVE: The patient was seen, chart reviewed, and discussed with staff. The patient is currently in the hospital, making suicidal statements, he remains needy, intrusive, calling family quite a bit, difficult to redirect, worries about his , isolative, and withdrawn. When I go to see him this morning, he does not want to talk to me and essentially tells me to go away. He has been following in rules and directions, however. Sleeping fairly well and eating well. He does remain medication seeking. ASSESSMENT: The patient remains symptomatic, depressed, withdrawn, and still intrusive. The patient requires a high degree of redirection. PLAN: Continue to monitor. There are continued safety concerns. The patient to follow up with Dr. Barboza on Monday for a disposition planning. JOB# [id number]
[2016-07-03] MEDS: Multivitamin Tab PO SCH (08:40)
[2016-07-03] MEDS: Aspirin 81mg Chewable Tab PO SCH (08:40)
[2016-07-03] MEDS: Pantoprazole 40 mg/Packet PO SCH (08:41)
--- NOTE | 2016-07-03 12:48 | Progress Notes ---
SUBJECTIVE: The patient seen and examined. The patient is lying in the bed. I discussed with patient's assigned nurse about the patient's concerns and treatment plan. The patient's ____. OBJECTIVE: VITAL SIGNS: Temperature 98, pulse 74, respiratory rate 18, blood pressure is reported today is 183/109, yesterday 142/94. Last blood pressure on July 01 to July 02 has been reported diastolic of 90s. HEENT: No facial asymmetry. NECK: Supple, no JVD. HEART Both heart sounds are regular. No S3, no S4. CHEST: Equal in expansion. No wheezing, no crackles. ABDOMEN: Soft, no guarding, no rigidity. Bowel sounds present. There are no palpable masses. EXTREMITIES: No edema. Diffuse osteoarthritic changes noted. CLINICAL IMPRESSION: 1. Hypertension, uncontrolled. 2. Hepatitis C. 3. Degenerative joint disease. 4. Psychotic disorder. 5. Coronary artery disease. 6. Hiatal hernia. 7. Gastroesophageal reflux disease. 8. History of polysubstance abuse. PLAN: We will increase the patient's captopril to 50 mg 3 times a day for now. Continue Norvasc as prescribed. Follow low sodium diet. Continue to follow psychiatrist recommendations. Monitoring of the blood sugar has been continued. Hepatitis C management is deferred as an outpatient. The patient is medically stable at this time for psych care for today. The patient is medically stable at this time to continue her psychiatric care at [facility]. JOB# [id number]
--- NOTE | 2016-07-03 23:39 | Progress Notes ---
SUBJECTIVE: The patient is seen, chart reviewed, discussed with staff. The patient is currently in the hospital, he was making suicidal statements, remains depressed, isolative, withdrawn, concerns for safety persist, still intrusive at times, staff noting he has been medication seeking. The patient not wanted to talk to me this morning, resistive to interview, noted to be sleeping well by staff, eating fairly well. ASSESSMENT: The patient remains symptomatic, depressed, withdrawn, continued concerns for safety persist given the severity of his current behaviors and his presentation. PLAN: Continue to monitor for any medication side effects or any behavioral changes, we will continue to monitor. The patient to follow up with Dr. Barboza in the morning. [facility]# [id number]
[2016-07-04] MEDS: Hydrocodone/APAP 5mg/325mg Tab PO PRN ×3 (06:28→23:00)
--- NOTE | 2016-07-04 08:48 | General Progress Note ---
Subjective - Review of Systems Subjective: PATIENT IS SEEN AND EXAMINED. NO NEW COMPLAINTS. Objective - Results Result Diagrams: 06/25/16 06:43 06/25/16 06:43 Recent Labs: Laboratory Last Values WBC 10.4 Th/cmm (4.8-10.8) D 06/25/16 06:43 RBC 4.81 Mil/cmm (3.80-5.80) 06/25/16 06:43 Hgb 15.3 gm/dL (12.6-17.4) 06/25/16 06:43 Hct 45.4 % (39.0-49.0) 06/25/16 06:43 MCV 94.4 fl (80-99) 06/25/16 06:43 MCH 31.8 pg (27.0-31.0) H 06/25/16 06:43 MCHC Differential 33.6 pg (28.0-36.0) 06/25/16 06:43 RDW 14.8 % (11.5-20.0) 06/25/16 06:43 Plt Count 243 Th/cmm (150-400) 06/25/16 06:43 MPV 9.3 fl 06/25/16 06:43 Neutrophils % 53.4 % (40.0-80.0) 06/25/16 06:43 Lymphocytes % 27.6 % (20.0-50.0) 06/25/16 06:43 Monocytes % 12.7 % (2.0-10.0) H 06/25/16 06:43 Eosinophils % 5.3 % (0.0-5.0) H 06/25/16 06:43 Basophils % 1.0 % (0.0-2.0) 06/25/16 06:43 Sodium 141 mEq/L (136-145) 06/25/16 06:43 Potassium 3.4 mEq/L (3.5-5.1) L 06/25/16 06:43 Chloride 109 mEq/L (98-107) H 06/25/16 06:43 Carbon Dioxide 23.5 mEq/L (21.0-31.0) 06/25/16 06:43 Anion Gap 11.9 (7.0-16.0) 06/25/16 06:43 BUN 31 mg/dL (7-25) H 06/25/16 06:43 Creatinine 1.0 mg/dL (0.7-1.3) 06/25/16 06:43 Est GFR ( Amer) TNP 06/25/16 06:43 Est GFR (Non-Af Amer) TNP 06/25/16 06:43 BUN/Creatinine Ratio 31.0 06/25/16 06:43 Glucose 100 mg/dL (70-105) 06/25/16 06:43 POC Glucose 132 MG/DL (70 - 105) H 06/29/16 20:13 Calcium 9.7 mg/dL (8.6-10.3) 06/25/16 06:43 Total Bilirubin 0.5 mg/dL (0.3-1.0) 06/25/16 06:43 AST 40 U/L (13-39) H 06/25/16 06:43 ALT 65 U/L (7-52) H 06/25/16 06:43 Alkaline Phosphatase 92 U/L (34-104) 06/25/16 06:43 Total Protein 7.7 gm/dL (6.0-8.3) 06/25/16 06:43 Albumin 3.9 gm/dL (4.2-5.5) L 06/25/16 06:43 Globulin 3.8 gm/dL 06/25/16 06:43 Albumin/Globulin Ratio 1.0 (1.0-1.8) 06/25/16 06:43 - Physical Exam Vitals and I&O: Vital Signs Temp 97.3 F 07/04/16 07:16 Pulse 92 07/04/16 07:28 Resp 16 07/04/16 07:28 BP 155/90 07/04/16 07:16 Pulse Ox 97 07/04/16 07:28 Intake & Output 07/03/16 07/04/16 07/04/16 18:59 06:59 18:59 Intake Total 2800 Balance 2800 Intake: Oral 2800 Other: # Voids 5 2 # Bowel Movements 1 Active Medications: Current Medications Acetaminophen (Tylenol) 650 mg PO Q4HR PRN PRN Reason: Pain Stop: 08/21/16 01:14 Last Admin: 06/26/16 09:41 Dose: 650 mg Acetaminophen/Hydrocodone Bitart ([place] 5mg/325mg) 1 tab PO Q6H PRN PRN Reason: Severe Pain Stop: 08/21/16 01:31 Last Admin: 07/04/16 06:28 Dose: 1 tab Al Hydrox/Mg Hydrox/Simethicone (Maalox) 30 ml PO Q4HR PRN PRN Reason: GI DISTRESS Stop: 08/21/16 01:14 Last Admin: 07/02/16 19:35 Dose: 30 ml Albuterol Sulfate (Albuterol 2.5mg/3ml Neb Ud) 2.5 mg HHN Q6H PRN PRN Reason: Shortness of Breath Stop: 08/21/16 16:53 Last Admin: 06/27/16 20:22 Dose: 2.5 mg Amlodipine Besylate (Norvasc) 10 mg PO DAILY [facility] Stop: 08/23/16 09:59 Last Admin: 07/03/16 08:39 Dose: 10 mg Aspirin (Aspirin Chewable) 81 mg PO DAILY [facility] Stop: 08/22/16 08:59 Last Admin: 07/03/16 08:40 Dose: 81 mg Captopril (Capoten 25 Mg Tab) 50 mg PO TID DANUTA Stop: 08/24/16 13:59 Last Admin: 07/03/16 21:00 Dose: 50 mg Hydroxyzine Pamoate (Vistaril) 25 mg PO Q6HR PRN; Protocol PRN Reason: Agitation Stop: 08/22/16 11:17 Last Admin: 07/02/16 08:13 Dose: 25 mg Mirtazapine (Remeron) 22.5 mg PO HS DANUTA PRN Reason: Protocol Stop: 09/01/16 06:59 Last Admin: 07/03/16 21:00 Dose: 22.5 mg Multivitamins/Vitamin C (Theragran) 1 tab PO DAILY [facility] Stop: 08/21/16 08:59 Last Admin: 07/03/16 08:40 Dose: 1 tab Pantoprazole Sodium (Protonix) 40 mg PO DAILY [facility] Stop: 08/22/16 08:59 Last Admin: 07/03/16 08:41 Dose: 40 mg Zolpidem Tartrate (Ambien) 5 mg PO HS PRN PRN Reason: Insomnia Stop: 08/21/16 01:14 Last Admin: 07/03/16 21:15 Dose: 5 mg General: Alert, Cooperative, No acute distress HEENT: Atraumatic, PERRLA, EOMI Neck: Supple Cardiovascular: Regular rate, Normal S1, Normal S2 Lungs: Clear to auscultation Abdomen: Soft Extremities: Other (Diffuse DJD changes.) Neurological: Normal gait Assessment/Plan - Assessment Assessment: ASTHMA AND COPD. CAD GERD HYPERTENSION. HEP C CHRONIC PAIN SYNDROME PSYCH DISORDER DIFFUSE DJD DEBILITY GASTRITIS. - Plan Plan: PAIN CONTROL ASA. ANTIREFLUX MEASURES. PROTONIX FOR GERD. ANTI HTN MEDS. PRN INHALATION THERAPY GENERAL NURSING CARE PSYCH MEDS. FALL PRECAUTIONS. PSYCH FOLLOW UP. MONITOR VITALS AND LAB CONTINUE CURRENT CARE DISCUSSED WITH RN Nutritional Asmnt/Malnutr-PDOC - Dietary Evaluation Malnutrition Findings (Please click <Entered> for more info): Nutritional Asmnt/Malnutrition Start: 06/27/16 16: 03 Text: Status: Complete Freq: Document 06/27/16 16:05 GSUN (Rec: 06/27/16 16:22 GSUN [email or web address]) Nutritional Asmnt/Malnutrition Patient General Information Nutritional Screening Moderate Risk Screening Diagnosis Psychosis Pertinent Medical Hx/Surgical Hx hx hepatitis C, DJD, hx polysubstance abuse, bronchial , CAD, hiatal hernia, GERD, bronchial asthma, chronic pain syndrome Subjective Information 71 year old male. Pt was alert and pleasant, worried about . Pt is edentulous, dentures left elsewhere, denied difficulties chewing/ swalloing. Avg PO intake 100% since adm, meeting nutritional needs. Pt stated nutritional concerns at this time, appetite good, no GI discomforts. Current Diet Order/ Nutrition Support Cardiac Pertinent Medications Maalox, Remeron, TheragranProtonix Pertinent Labs Reviewed. Nutritional Hx/Data Height 1.68 m Height (Calculated Centimeters) 167.6 Current Weight (lbs) 71.395 kg Weight (Calculated Kilograms) 71.4 Weight (Calculated Grams) 51390.4 Usual body Weight (lbs) 160 Mather Body Weight 142lb Recent Weight Change No Weight Status Approriate GI Symptoms Skin Integrity/Comment: Mario 22. Skin intact. Current %PO Good (75-100%) Estimated Nutritional Goals BEE in Kcals: Using Current wt Calories/Kcals/Kg CBW 71.4kg Kcals Calculated 1785-2142kcal (25-30kcal/kg) Protein: Using Current wt Protein Calculated 71g (1g/kg) Fluid: ml 1785-2142ml (1ml/kcal) Nutritional Problem 1. Problem Problem No nutritional problems at this time. Intervention/Recommendation Comments 1. Continue with cardiac diet. Avg PO itnake is adequate. Expected Outcomes/Goals Expected Outcomes/Goals 1. PO intake continue to meet at least 75% of estimated nutritional needs.
[2016-07-04] MEDS: Pantoprazole 40 mg/Packet PO SCH (08:54)
[2016-07-04] MEDS: Aspirin 81mg Chewable Tab PO SCH (08:55)
[2016-07-04] MEDS: Multivitamin Tab PO SCH (08:55)
--- NOTE | 2016-07-05 00:18 | Progress Notes ---
DATE: 07/04/2016 Case was discussed with staff of the patient, reviewed records. The patient is currently denying any intent to harm himself or anybody. I discussed with him of using drugs. He has been minimizing that admission. He has not been acting anyway dangerous since he has been here. He has been, however, withdrawn, so at this point, the only place he can go to is back with his . He is stating that he would not use any alcohol or drugs. He is compliant with the medication with no side effects, no sedation, and no nausea. He is able to feed himself and take care of himself. Dr. Rollins increased the Remeron to 22.5 mg at bedtime, and I will increase it further to 30 mg at bedtime to help with his depression as he is still having complaints about difficulty with sleep at times. We will continue to work with the patient in group therapy, milieu therapy, and adjust medications as needed. JOB# [id number]
[2016-07-05] MEDS: Hydrocodone/APAP 5mg/325mg Tab PO PRN (08:45)
[2016-07-05] MEDS: Pantoprazole 40 mg/Packet PO SCH (08:46)
[2016-07-05] MEDS: Aspirin 81mg Chewable Tab PO SCH (08:46)
[2016-07-05] MEDS: Multivitamin Tab PO SCH (08:46)
--- NOTE | 2016-07-05 23:24 | Discharge Summary ---
DATE OF DISCHARGE: 07/05/2016 IDENTIFYING INFORMATION: The patient is a 71 years old male. CHIEF COMPLAINT: I have been in lot of pain. HISTORY OF PRESENT ILLNESS: The patient was admitted on hold for danger to self. He wanted to shoot himself with a gun. When I talked to him, he said that he has been in lot of pain and he cannot handle it anymore. Apparently, they have been not giving him his medication. He was on morphine and oxycodone, and they are cutting down his medication and that was making him feel very overwhelmed. He was not able to sleep, not able to eat, has lost 20 pounds in the last 2 years. He reports he feels suicidal, but now he does not feel suicidal. He denies any homicidal ideation, denies any auditory or visual hallucination or paranoia. He looked very much disheveled, internally preoccupied. When I talked to him, the patient has a history of using heroin IV, though he developed hepatitis C; cannabis; and also he reported LSD, overdose on LSD, took 3 tablets, was hospitalized once. Denies it was suicide attempt. Denies any prior treatment for depression; however, he seemed not to be a reliable historian. He is allergic to KLONOPIN, PENICILLIN, LYRICA, SOMA, ALPRAZOLAM. COURSE IN THE HOSPITAL: The patient was started on Remeron, the dose was increased slowly over the course of his stay to 50 mg a day. The patient was continued with aspirin and captopril for his blood pressure, hydrocodone, and that was given by Dr. Johnson. The Remeron was increased to ____ mg a day. He was on multivitamin, Protonix, Ambien as needed, amlodipine, and hydroxyzine. He progressively got better. I tried to not to give him any addictive medication, however, the hydrocodone was given by Dr. Johnson. The patient did very well, his was happy to get him back, he lives with his . I discussed with the patient, the need for him to avoid using any addictive medication or use drugs because of his condition and the patient understood. So as he improved, he was no longer acting in anyway dangerous, actually he continues to deny that he was ever suicidal from the first day he came here, so as he has a stable place to go to, the nurse case manager talked to his . The patient knows that he needs to follow up with his medical doctor for his medical condition. So we felt he could be discharged to a lesser level of care. FINAL DIAGNOSIS: AXIS I: Major depression, recurrent with no psychosis. MEDICAL DIAGNOSES: Hypertension, hepatitis C, degenerative joint disease, asthma, coronary artery disease, hiatal hernia, gastroesophageal reflux disease. FOLLOWUP: The patient will follow up with his medical doctor, will follow up with the psychiatrist ____ program. EXPECTED OUTCOME: Stable if the patient complies with the above. JOB# [id number]
== END 2016-07-05 16:10 | disposition home or self-care (01) | DRG 885 ==
LOC: GERO 00:45
PROVIDERS: ADMIT Psychiatry & Neurology Psychiatry; ATTEND Psychiatry & Neurology Psychiatry
DX: F33.9 Major depressive disorder, recurrent, unspecified (principal); J44.9 Chronic obstructive pulmonary disease, unspecified; M19.90 Unspecified osteoarthritis, unspecified site; B19.20 Unspecified viral hepatitis C without hepatic coma; I25.10 Atherosclerotic heart disease of native coronary artery without angina pectoris; K21.9 Gastro-esophageal reflux disease without esophagitis; F19.10 Other psychoactive substance abuse, uncomplicated; K44.9 Diaphragmatic hernia without obstruction or gangrene; G89.4 Chronic pain syndrome; K29.70 Gastritis, unspecified, without bleeding; Z79.899 Other long term (current) drug therapy; Z88.8 Allergy status to other drugs, medicaments and biological substances; Z88.0 Allergy status to penicillin; Z82.49 Family history of ischemic heart disease and other diseases of the circulatory system; Z87.891 Personal history of nicotine dependence
CPT/HCPCS: 36415-UA; 80053-TC; 82948-90; 85025-TC; 90899; 94640; 94760; G0410; J7613; Q0177; Z7610